=== PATIENT | male | born 1975 | race African-American/Black ===

== ENCOUNTER 2016-12-29 10:49 | Inpatient (IN) | payer OTHER ==
[~2016-12-29] VITALS: Ht 195.6 cm; Wt 114.0 kg
[~2016-12-29 10:49] MED LIST: CLIN1CAP4 PO; OXYC30TA50 PO; PROM25TA5 PO; SACC250C PO
[2016-12-29] MEDS ORDERED: PROMETHAZINE HCL 25 MG/ML 1ML IV ONE ×2 (11:30→12:00)
[2016-12-29] MEDS ORDERED: SODIUM CHLORIDE 0.9% 1,000 ML IVB ONE (11:45)
[2016-12-29] MEDS ORDERED: HYDROmorphone HCL 2 MG/ML VL IV ONE ×3 (11:45→14:00)
[2016-12-29] MEDS ORDERED: SODIUM CHLORIDE 0.9% 2,000 ML IV ONE (12:00)
[2016-12-29] MEDS ORDERED: ONDANSETRON HCL 4 MG/2 ML VIAL ONE (12:31)
[2016-12-29] MEDS ORDERED: ONDANSETRON HCL 4 MG/2 ML VIAL IV ONE (12:45)
[2016-12-29 12:53] LABS: Basophils # (auto) 0 uL; Basophils % (auto) 0.5 % (0.0-2.0); CONDITION Y; Eosinophils # (auto) 0.1 uL; Eosinophils % (auto) 1.3 % (0.0-7.0); Hematocrit 35.6 % (41.0-53.0); Hemoglobin 11.9 g/dL (13.5-17.5); Lymphocytes # (auto) 0.7 uL; Lymphocytes % (auto) 10.8 % (10.0-50.0); Mean Corpuscular Hgb Conc. 33.5 g/dL (32.0-36.0); Mean Corpuscular Volume 92.7 fL (80.0-100.0); Mean Platelet Volume 8.9 fL (7.4-10.4); Monocytes # (auto) 0.3 uL; Monocytes % (auto) 4.7 % (0.0-12.0); Neutrophils # (auto) 5.6 uL; Neutrophils % (auto) 82.7 % (37.0-80.0); Platelet Count (auto) 259 10^3/uL (140-450); White Blood Cell 6.8 10^3/uL (4.4-10.8)
[2016-12-29 13:38] LABS: Alkaline Phosphatase 131 U/L (45-117); Anion Gap 8 (5-15); Aspartate Aminotransferase 20 U/L (15-37); BUN/Creatinine Ratio 10.1; Bilirubin, Total 0.4 mg/dL (0.2-1.0); Blood Urea Nitrogen 19 mg/dL (7-18); Calcium 7.6 mg/dL (8.5-10.1); Carbon Dioxide 18 mmol/L (21-32); Chloride 108 mmol/L (98-107); GFR African American 51 mL/min; GFR Non-African American 42 mL/min; Glucose 306 mg/dL (74-106); Potassium 3.7 mmol/L (3.5-5.1); Sodium 134 mmol/L (136-145)
[2016-12-29 13:39] LABS: Albumin 2.5 g/dL (3.4-5.0); Magnesium 1.5 mg/dL (1.6-2.6); Total Protein 7.3 g/dL (6.4-8.2)
[2016-12-29] MEDS ORDERED: LABETALOL HCL 5 MG/ML ML 20ML VIAL IV ONE ×2 (14:00→15:45)
[2016-12-29] MEDS ORDERED: LABETALOL HCL 5 MG/ML ML 20ML VIAL IV PRN ×2 (15:45)
[2016-12-29] MEDS ORDERED: NITROGLYCERIN 0.4 MG SL TAB SL PRN (15:45)
[2016-12-29] MEDS ORDERED: DEXTROSE (50%) 50ML SYRG IV PRN (15:45)
[2016-12-29] MEDS ORDERED: LORazepam 0.5 MG TAB PO PRN (15:45)
[2016-12-29] MEDS ORDERED: HYDROcodone-ACET 5/325MG TAB PO PRN (15:45)
[2016-12-29] MEDS ORDERED: OXYCODONE HCL 30 MG PO PRN (15:45)
[2016-12-29] MEDS ORDERED: ACETAMINOPHEN 500 MG TAB PO PRN (15:45)
[2016-12-29] MEDS ORDERED: TEMAZEPAM 15 MG CAP PO PRN (15:45)
[2016-12-29 16:22] LABS: Urine Bilirubin Negative (Negative); Urine Color Yellow (Yellow); Urine Nitrite Negative (Negative); Urine RBC 5 /hpf (0 - 3); Urine Squamous Epithelial Cell FEW /hpf (<5); Urine Urobilinogen Normal (Negative)
[2016-12-29 16:24] LABS: Urine Blood 1+ /uL (Negative); Urine Glucose 4+ mg/dL (Normal); Urine Ketone 1+ (Negative)
[2016-12-29] MEDS: PROMETHAZINE HCL 25 MG/ML 1ML IV PRN ×2 (16:32→22:04)
[2016-12-29] MEDS: HYDROmorphone HCL 2 MG/ML VL IV PRN ×2 (16:44→22:04)
[2016-12-29] MEDS ORDERED: METOPROLOL TARTRATE 25 MG TAB PO ONE (17:00)
[2016-12-29] MEDS ORDERED: ENALAPRIL MALEATE 2.5 MG TAB PO ONE (17:00)
[2016-12-29] MEDS: ACCU-CHEK COMFORT CURVE STRIP VI SCH ×2 (17:23→22:00)
[2016-12-29] MEDS: InsuLIN REG 1unit/0.01ml Soln (100units/ml) SC SCH ×2 (17:33→22:39)
[2016-12-29] MEDS: LORazepam 2MG/ML-1ML VIAL IV PRN (18:16)
[2016-12-29] MEDS: SODIUM CHLORIDE 0.9% 1,000 ML IV SCH (19:20)
[2016-12-29 21:05] VITALS: BP 129/97
[2016-12-29] MEDS: METOPROLOL TARTRATE 25 MG TAB PO SCH (22:03)
[2016-12-29 22:10] VITALS: BP 128/97
[2016-12-30] MEDS: LORazepam 2MG/ML-1ML VIAL IV PRN ×4 (00:04→19:22)
[2016-12-30] MEDS ORDERED: PIP3PBAE IV (01:10)
[2016-12-30] MEDS ORDERED: PROM25TA5 PO (01:10)
[2016-12-30] MEDS: PROMETHAZINE HCL 25 MG/ML 1ML IV PRN ×6 (02:02→22:19)
[2016-12-30] MEDS: HYDROmorphone HCL 2 MG/ML VL IV PRN ×6 (02:02→22:19)
[2016-12-30 05:00] VITALS: BP 142/83
[2016-12-30] MEDS: ACCU-CHEK COMFORT CURVE STRIP VI SCH ×4 (06:04→22:18)
[2016-12-30] MEDS: InsuLIN REG 1unit/0.01ml Soln (100units/ml) SC SCH ×4 (06:05→22:00)
[2016-12-30 06:54] LABS: Basophils # (auto) 0 uL; Basophils % (auto) 0.4 % (0.0-2.0); CONDITION Y; Eosinophils # (auto) 0.1 uL; Hematocrit 31.8 % (41.0-53.0); Hemoglobin 10.7 g/dL (13.5-17.5); Lymphocytes # (auto) 1.9 uL; Lymphocytes % (auto) 24.2 % (10.0-50.0); Mean Corpuscular Hemoglobin 31.2 pg (28.0-32.0); Mean Corpuscular Hgb Conc. 33.7 g/dL (32.0-36.0); Mean Corpuscular Volume 92.3 fL (80.0-100.0); Mean Platelet Volume 8.9 fL (7.4-10.4); Monocytes # (auto) 0.8 uL; Monocytes % (auto) 9.7 % (0.0-12.0); Neutrophils # (auto) 5.2 uL; Neutrophils % (auto) 64.7 % (37.0-80.0); Platelet Count (auto) 266 10^3/uL (140-450); Red Cell Distribution Width 15.3 % (11.6-16.0)
[2016-12-30 07:09] LABS: Albumin 2.4 g/dL (3.4-5.0); BUN/Creatinine Ratio 10.2; Potassium 3.1 mmol/L (3.5-5.1)
[2016-12-30 07:19] LABS: Bilirubin, Total 0.2 mg/dL (0.2-1.0); Total Protein 6.5 g/dL (6.4-8.2)
[2016-12-30 08:55] VITALS: BP 148/84
[2016-12-30] MEDS ORDERED: PANTOPRAZOLE SODIUM 40 MG/10 ML VIAL IV SCH (10:00)
[2016-12-30] MEDS: ENALAPRIL MALEATE 2.5 MG TAB PO SCH (10:04)
[2016-12-30] MEDS: METOPROLOL TARTRATE 25 MG TAB PO SCH ×2 (10:04→22:18)
[2016-12-30] MEDS: SODIUM CHLORIDE 0.9% 1,000 ML IV SCH ×2 (10:05→22:17)
[2016-12-30 13:00] VITALS: BP 147/88
[2016-12-30] MEDS ORDERED: HYOSCYAMINE SULF 0.125 MG TAB PO PRN (13:00)
[2016-12-30] MEDS ORDERED: POTASSIUM CHL 20 Meq TABLET PO ONE (13:15)
[2016-12-30 17:00] VITALS: BP 142/85
[2016-12-30] MEDS: PIPERACILLIN-TAZOB 3.375GM 100 ML IV SCH (18:15)
[2016-12-30] MEDS ORDERED: GOLYTELY 4L KIT PO ONE (18:30)
[2016-12-30 20:00] VITALS: BP 145/75
[2016-12-30 21:56] VITALS: BP 154/75
[2016-12-30] MEDS: PANTOPRAZOLE 40 MG TAB PO SCH (22:17)
[2016-12-31] MEDS: PIPERACILLIN-TAZOB 3.375GM 100 ML IV SCH ×4 (00:47→17:26)
[2016-12-31] MEDS: PROMETHAZINE HCL 25 MG/ML 1ML IV PRN ×5 (02:35→22:15)
[2016-12-31] MEDS: LORazepam 2MG/ML-1ML VIAL IV PRN ×3 (02:35→23:23)
[2016-12-31] MEDS: HYDROmorphone HCL 2 MG/ML VL IV PRN ×5 (02:36→22:15)
[2016-12-31 05:12] VITALS: BP 163/91
[2016-12-31 05:47] LABS: Basophils # (auto) 0 uL; Basophils % (auto) 0.5 % (0.0-2.0); CONDITION Y; Eosinophils # (auto) 0.2 uL; Eosinophils % (auto) 3.1 % (0.0-7.0); Hematocrit 31.9 % (41.0-53.0); Hemoglobin 10.6 g/dL (13.5-17.5); Lymphocytes # (auto) 2.6 uL; Lymphocytes % (auto) 34.7 % (10.0-50.0); Mean Corpuscular Hgb Conc. 33.2 g/dL (32.0-36.0); Mean Corpuscular Volume 93.5 fL (80.0-100.0); Mean Platelet Volume 8.7 fL (7.4-10.4); Monocytes # (auto) 0.7 uL; Monocytes % (auto) 9.4 % (0.0-12.0); Neutrophils # (auto) 3.9 uL; Neutrophils % (auto) 52.3 % (37.0-80.0); Platelet Count (auto) 254 10^3/uL (140-450); Red Cell Distribution Width 15.5 % (11.6-16.0); White Blood Cell 7.4 10^3/uL (4.4-10.8)
[2016-12-31 06:04] LABS: Calcium 6.8 mg/dL (8.5-10.1); Magnesium 1.6 mg/dL (1.6-2.6); Potassium 3.6 mmol/L (3.5-5.1)
[2016-12-31 06:22] LABS: BUN/Creatinine Ratio 9.1
[2016-12-31] MEDS: InsuLIN REG 1unit/0.01ml Soln (100units/ml) SC SCH ×4 (06:33→22:40)
[2016-12-31] MEDS: ACCU-CHEK COMFORT CURVE STRIP VI SCH ×4 (06:33→22:00)
[2016-12-31] MEDS: LABETALOL HCL 5 MG/ML ML 20ML VIAL IV PRN (07:30)
[2016-12-31] MEDS ORDERED: diphenhdrAMINE HCL 50 MG/1 ML VL ONE (08:08)
[2016-12-31] MEDS ORDERED: SODIUM CHLORIDE LOCK 10 ML ONE (08:08)
[2016-12-31 08:59] LABS: INR 1.09 (0.9-1.15); Partial Thromboplastin Time 25.7 sec (22.64-33.71); Prothrombin Time 11.9 sec (9.37-12.3)
[2016-12-31 09:29] VITALS: BP 146/96
[2016-12-31] MEDS: PANTOPRAZOLE 40 MG TAB PO SCH ×2 (10:00→22:34)
[2016-12-31] MEDS: METOPROLOL TARTRATE 25 MG TAB PO SCH ×3 (10:00→22:34)
[2016-12-31] MEDS: ENALAPRIL MALEATE 2.5 MG TAB PO SCH (10:00)
[2016-12-31] MEDS: SODIUM CHLORIDE 0.9% 1,000 ML IV SCH (11:15)
[2016-12-31] MEDS ORDERED: LIDOCAINE VISCOUS 2% 15ML UD ONE (11:48)
[2016-12-31] MEDS: fentaNYL CITRATE 100 MCG/2 ML VL ONE ×2 (11:51→11:54)
[2016-12-31] MEDS: MIDAZOLAM HCL 5 MG/ML-1ML VIAL ONE ×3 (11:51→11:57)
[2016-12-31] MEDS ORDERED: MAGNESIUM SULFATE 1GM/100ML 100 ML IV ONE (13:15)
[2016-12-31] MEDS ORDERED: HYDROmorphone HCL 2 MG/ML VL IV ONE (13:30)
[2016-12-31] MEDS ORDERED: MULTIPLE VITAMINS W/ MINERALS TAB PO ONE (16:45)
[2016-12-31 17:00] VITALS: BP 150/91
[2016-12-31] MEDS ORDERED: ASCORBIC ACID 500 MG TAB PO ONE (17:00)
[2016-12-31] MEDS: PRO-STAT 64 30ML PO SCH (18:00)
[2016-12-31] MEDS ORDERED: SODIUM CHLORIDE 0.9% 1,000 ML IV SCH (19:15)
[2016-12-31 20:00] VITALS: BP 161/94
[2016-12-31 22:00] VITALS: BP 161/94
[2016-12-31] MEDS: ASCORBIC ACID 500 MG TAB PO SCH (22:34)
[2017-01-01] MEDS: PIPERACILLIN-TAZOB 3.375GM 100 ML IV SCH ×3 (00:15→11:39)
[2017-01-01] MEDS: HYDROmorphone HCL 2 MG/ML VL IV PRN ×4 (02:35→15:20)
[2017-01-01] MEDS: PROMETHAZINE HCL 25 MG/ML 1ML IV PRN ×4 (02:35→15:21)
[2017-01-01 05:00] VITALS: BP 176/104
[2017-01-01] MEDS: ACCU-CHEK COMFORT CURVE STRIP VI SCH ×2 (07:03→11:29)
[2017-01-01] MEDS: InsuLIN REG 1unit/0.01ml Soln (100units/ml) SC SCH ×2 (07:07→11:38)
[2017-01-01] MEDS: PRO-STAT 64 30ML PO SCH (07:50)
[2017-01-01 08:00] VITALS: BP 166/89
[2017-01-01] MEDS: LORazepam 2MG/ML-1ML VIAL IV PRN ×2 (08:00→14:18)
[2017-01-01 08:21] LABS: Hematocrit 32.9 % (41.0-53.0); Hemoglobin 10.8 g/dL (13.5-17.5)
[2017-01-01 08:49] LABS: BUN/Creatinine Ratio 8.7; Calcium 6.9 mg/dL (8.5-10.1); Magnesium 1.8 mg/dL (1.6-2.6); Potassium 3.7 mmol/L (3.5-5.1)
[2017-01-01] MEDS ORDERED: MAGNESIUM OXIDE 400 MG TAB PO ONE (09:30)
[2017-01-01] MEDS: ENALAPRIL MALEATE 2.5 MG TAB PO SCH (09:34)
[2017-01-01] MEDS: ASCORBIC ACID 500 MG TAB PO SCH (09:34)
[2017-01-01] MEDS: PANTOPRAZOLE 40 MG TAB PO SCH (09:34)
[2017-01-01] MEDS: METOPROLOL TARTRATE 25 MG TAB PO SCH (09:35)
[2017-01-01 09:54] VITALS: BP 166/89
[2017-01-01] MEDS ORDERED: MULTIPLE VITAMINS W/ MINERALS TAB PO SCH (10:00)
[2017-01-01] MEDS ORDERED: PANT40T PO (10:06)
[2017-01-01 10:23] VITALS: BP 166/89
[2017-01-01] MEDS: LABETALOL HCL 5 MG/ML ML 20ML VIAL IV PRN (13:08)
[2017-01-01 13:26] VITALS: BP 171/98
== END 2017-01-01 17:15 | disposition home or self-care (01) | DRG 241 ==
LOC: ER 10:49 → EDBD 10:49 → TELE 10:50 → TELE-WESTW 20:58
PROVIDERS: ADMIT Internal Medicine; ATTEND Internal Medicine
PROC: 0DB68ZX Excision of Stomach, Via Natural or Artificial Opening Endoscopic, Diagnostic (ICD-10-PCS; principal; 2016-12-31 11:50)
DX: K29.70 Gastritis, unspecified, without bleeding (principal); N17.0 Acute kidney failure with tubular necrosis; E43 Unspecified severe protein-calorie malnutrition; E11.21 Type 2 diabetes mellitus with diabetic nephropathy; F11.20 Opioid dependence, uncomplicated; I12.9 Hypertensive chronic kidney disease with stage 1 through stage 4 chronic kidney disease, or unspecified chronic kidney disease; N18.3 Chronic kidney disease, stage 3 (moderate); E87.6 Hypokalemia
CPT/HCPCS: 36415; 71010; 74176; 76705; 80048; 80053; 80307; 81001; 82150; 82550; 82962; 83036; 83605; 83690; 83735; 84443; 84484; 85014; 85018; 85025; 85045; 85610; 85652; 85730; 86141; 87040; 87081; 87205; 93005; 94761; 96374; 96375; 96376; C9113; J1815; J2250; J2405; J2543

== ENCOUNTER 2020-03-10 16:09 | Emergency (ER) | payer MEDICAID ==
[~2020-03-10] VITALS: Ht 185.4 cm; Wt 79.4 kg
[~2020-03-10 16:09] MED LIST changes: -CLIN1CAP4 PO; +PANT40T PO; -SACC250C PO; +insulin
[2020-03-10] MEDS ORDERED: SODIUM CHLORIDE 0.9% 1,000 ML IV ONE (16:45)
[2020-03-10] MEDS ORDERED: cloNIDine HCL 0.1 MG TAB PO ONE (18:15)
[2020-03-10 23:27] LABS: Basophils # (auto) 0.1 10 ^3/uL (0-0.2); Basophils % (auto) 1.2 % (0.0-2.0); Eosinophils # (auto) 0.4 10 ^3/uL (0-0.8); Eosinophils % (auto) 3.5 % (0.0-7.0); Hematocrit 27.6 % (41.0-53.0); Hemoglobin 9.1 g/dL (13.5-17.5); Lymphocytes # (auto) 1.8 10 ^3/uL (0.4-5.4); Lymphocytes % (auto) 16.2 % (10.0-50.0); Mean Corpuscular Hemoglobin 32.5 pg (28.0-32.0); Mean Corpuscular Hgb Conc. 33.1 g/dL (32.0-36.0); Mean Corpuscular Volume 98.2 fL (80.0-100.0); Monocytes # (auto) 1.2 10 ^3/uL (0-1.3); Monocytes % (auto) 10.6 % (0.0-12.0); Neutrophils # (auto) 7.7 10 ^3/uL (1.6-8.6); Neutrophils % (auto) 68.5 % (37.0-80.0); Platelet Count (auto) 403 10^3/uL (140-450); Red Blood Cells 2.81 10^6/uL (4.5-5.90); Red Cell Distribution Width 13.1 % (11.8-14.3); White Blood Cell 11.2 10^3/uL (4.4-10.8)
[2020-03-10] MEDS ORDERED: LORazepam 2MG/ML-1ML VIAL IV ONE (23:30)
[2020-03-10] MEDS ORDERED: HYDROmorphone HCL 2 MG/ML VL IV ONE (23:30)
[2020-03-10] MEDS ORDERED: ONDANSETRON HCL 4 MG/2 ML VIAL IV ONE (23:30)
[2020-03-10 23:42] LABS: INR 1.02 (0.9-1.15); Partial Thromboplastin Time 35.3 sec (23.0-31.2)
[2020-03-10 23:46] LABS: Alanine Aminotransferase < 6 U/L (16-61); Albumin 2.4 g/dL (3.4-5.0); Anion Gap 4 (5-15); Aspartate Aminotransferase 10 U/L (15-37); BUN/Creatinine Ratio 6.6; Blood Urea Nitrogen 16 mg/dL (7-18); Calcium 8.4 mg/dL (8.5-10.1); Carbon Dioxide 24 mmol/L (21-32); Chloride 109 mmol/L (98-107); GFR African American 37 mL/min; GFR Non-African American 31 mL/min; Glucose 91 mg/dL (74-106); Potassium 4.4 mmol/L (3.5-5.1); Sodium 137 mmol/L (136-145)
[2020-03-10 23:51] LABS: Alkaline Phosphatase 67 U/L (45-117); Bilirubin, Total 0.4 mg/dL (0.2-1.0); Total Protein 7.7 g/dL (6.4-8.2)
[2020-03-11] MEDS ORDERED: HYDROmorphone HCL 2 MG/ML VL IV ONE ×2 (02:45→07:45)
[2020-03-11] MEDS ORDERED: PROMETHAZINE HCL 25 MG/ML 1ML IV ONE ×2 (03:30→07:45)
[2020-03-11] MEDS ORDERED: KETOROLAC TROMETH 30 MG/ML 1ML VIAL IV ONE (07:30)
[2020-03-11] MEDS ORDERED: PIPERACILLIN-TAZOB 3.375GM 100 ML IV ONE (09:00)
[2020-03-11 09:15] VITALS: BP 145/90
== END 2020-03-11 10:53 | disposition home or self-care (01) ==
LOC: EDBD 16:09 → ER 16:09
DX: T81.42XA Infection following a procedure, deep incisional surgical site, initial encounter (principal); I10 Essential (primary) hypertension; M86.9 Osteomyelitis, unspecified; D64.9 Anemia, unspecified; E11.9 Type 2 diabetes mellitus without complications; E78.5 Hyperlipidemia, unspecified; F17.210 Nicotine dependence, cigarettes, uncomplicated; Z79.899 Other long term (current) drug therapy; Z88.5 Allergy status to narcotic agent
CPT/HCPCS: 36415; 71250; 73700; 80053; 83036; 83605; 84484; 85025; 85610; 85730; 87040; 96361; 96365; 96375; 96376; 99285; J1170; J1885; J2060; J2543; J2550; J2405